=== PATIENT | male | born 1990 | race African-American/Black ===

== ENCOUNTER 2023-03-15 08:52 | Emergency (ER) | payer OTHER ==
[~2023-03-15] VITALS: Ht 165.1 cm; Wt 132.0 kg
[2023-03-15 09:03] VITALS: BP 152/92; PULSE 95; RESP 20; TEMP 98; O2SAT 96
--- NOTE | 2023-03-15 09:12 | NUR ---
Patient ambulated to bed 4.
--- NOTE | 2023-03-15 09:28 | NUR ---
32 y/o male c/o laceration to left pinky toe x yesterday. Patient reports washing dishes and a knife falling and cutting him. Patient is noted with a laceration to tip of toe. Minimal bleeding noted. Unknown last tetanus. Patient is able to move toe and has appropiate sensation. Call light is within reach. Medical History: Depression, Anxiety ALLERGY: ACETAMINOPHEN, HYDROCODONE
--- NOTE | 2023-03-15 10:27 | NUR ---
PT CONTINUES TO AWAIT TO BE SEEN. CALL LIGHT WITH IN REACH OF PT.
--- NOTE | 2023-03-15 10:38 | NUR ---
Patient being evaluated by physician at bedside.
--- NOTE | 2023-03-15 10:51 | NUR ---
L TOE PINKY IRRIGATED. + CMS
[2023-03-15] MEDS ORDERED: IBUP-2213 PO (10:55)
[2023-03-15 11:45] VITALS: BP 126/62; PULSE 83; RESP 18; TEMP 97.6; O2SAT 97
--- NOTE | 2023-03-15 11:45 | NUR ---
Patient discharged with v/s stable. Written and verbal after care instructions given. Patient alert, oriented and verbalized understanding of instructions. Ambulatory with steady gait. All questions addressed prior to discharge. ID band removed. Patient advised to follow up with PMD. Rx of Ibuprofen given. Opportunity to ask questions provided and answered. WORK NOTE HANDED TO PATIENT.
== END 2023-03-15 11:45 | disposition home or self-care (01) ==
LOC: MED 08:52
DX: S91.119A Laceration without foreign body of unspecified toe without damage to nail, initial encounter (principal); F41.9 Anxiety disorder, unspecified; F32.9 Major depressive disorder, single episode, unspecified; Z79.899 Other long term (current) drug therapy; Z88.5 Allergy status to narcotic agent; Z88.6 Allergy status to analgesic agent; W26.0XXA Contact with knife, initial encounter; Y93.89 Activity, other specified; Y92.89 Other specified places as the place of occurrence of the external cause; Y99.8 Other external cause status
CPT/HCPCS: 12001; 90471; 90715; 99283